=== PATIENT | male | born 1960 | race Caucasian/White ===

== ENCOUNTER 2016-07-10 11:24 | Inpatient (IN) | payer MEDICARE, OTHER ==
[~2016-07-10] VITALS: Ht 182.9 cm; Wt 93.2 kg
[2016-07-10] MEDS ORDERED: MAGNESIUM HYDROXIDE 30ML CUP PO PRN (12:30)
[2016-07-10] MEDS ORDERED: ACETAMINOPHEN 325 MG TAB PO PRN (12:30)
[2016-07-10] MEDS ORDERED: DOCUSATE SODIUM 100 MG CAP PO PRN (12:30)
[2016-07-10] MEDS ORDERED: NACL 0.9% 3 ML SYG IV SCH (12:30)
[2016-07-10] MEDS ORDERED: GABAPENTIN 400 MG CAP PO SCH (13:00)
[2016-07-10] MEDS ORDERED: CARBIDOPA/LEVODOPA (25/100) TAB PO SCH (13:00)
[2016-07-10 13:32] VITALS: BP 119/82; RESP 18
[2016-07-10] MEDS ORDERED: METHADONE 10 MG TAB PO SCH (14:00)
[2016-07-10 14:10] LABS: AADO2 Arterial 2.6 mmHg (7.0-24.0); Allen Test ACCEPTAB; Arterial COHb 0.3 % (0.0-3.0); Arterial Fraction of Oxyhgb 96.8 % (93.0-99.0); Arterial MetHb 0.2 % (0.0-1.5); Arterial Total Hemglobin 12.3 g/dl (12.0-18.0); MODE ROOM AIR
[2016-07-10 14:14] LABS: ADD SCAN DIFF NO
[2016-07-10 14:16] LABS: BASOPHILS % 0.7 % (0.0-2.0); EOSINOPHILS # 0.1 10^3/ul (0.0-0.5); EOSINOPHILS % 2.2 % (0.0-7.0); HEMATOCRIT 35.2 % (42.0-52.0); HEMOGLOBIN 11.5 g/dl (14.0-18.0); LYMPHOCYTES # 1.9 10^3/ul (0.8-2.9); LYMPHOCYTES % 34.8 % (15.0-51.0); MEAN CORPUSCULAR HEMOGLOBIN 28.8 pg (29.0-33.0); MEAN CORPUSCULAR HGB CONC 32.7 g/dl (32.0-37.0); MEAN CORPUSCULAR VOLUME 88.2 fl (82.0-101.0); MEAN PLATELET VOLUME 9.5 fl (7.4-10.4); MONOCYTE # 0.5 10^3/ul (0.3-0.9); MONOCYTES % 8.9 % (0.0-11.0); NEUTROPHIL # 2.9 10^3/ul (1.6-7.5); NEUTROPHILS % 52.7 % (39.0-77.0); PLATELET COUNT 212 10^3/UL (140-415); RED BLOOD COUNT 3.99 10^6/ul (4.70-6.10); WHITE BLOOD COUNT 5.5 10^3/ul (4.8-10.8)
[2016-07-10 14:39] LABS: ALBUMIN 3.8 g/dl (3.3-4.9); ALBUMIN/GLOBULIN RATIO 1.65; BILIRUBIN,INDIRECT 0.1 mg/dl (0-1.1); BILIRUBIN,TOTAL 0.1 mg/dl (0.2-1.3); CALCIUM 9.2 mg/dl (8.4-10.2); CREATININE 1.9 mg/dl (0.61-1.24); TOTAL PROTEIN 6.1 g/dl (6.1-8.1)
[2016-07-10 14:40] LABS: POTASSIUM 5.2 mmol/L (3.5-5.1)
[2016-07-10 14:54] LABS: T3 UPTAKE 35.3 % (23.5-40.5)
[2016-07-10 15:08] LABS: THYROID STIMULATING HORMONE 0.624 MIU/L (0.465-4.680)
[2016-07-10 15:34] VITALS: Ht 182.9 cm; Wt 93.2 kg
[2016-07-10] MEDS ORDERED: GLUCAGON 1 MG INJ IM PRN (16:00)
[2016-07-10] MEDS ORDERED: DEXTROSE 50% 50 ML SYRINGE IV PRN ×2 (16:00)
[2016-07-10] MEDS ORDERED: GLUCOSE GEL 15 GRAM TUBE BUCCAL PRN (16:00)
[2016-07-10] MEDS ORDERED: GLUCOSE GEL 15 GRAM TUBE PO PRN ×2 (16:00)
[2016-07-10] MEDS: METHADONE 10 MG TAB PO SCH ×2 (16:07→22:40)
[2016-07-10] MEDS: GABAPENTIN 400 MG CAP PO SCH ×2 (16:07→20:45)
[2016-07-10] MEDS: metFORMIN 500 MG TAB PO SCH (17:25)
[2016-07-10] MEDS: CARBIDOPA/LEVODOPA (25/100) TAB PO SCH ×2 (18:07→20:45)
[2016-07-10] MEDS: SOD CHLORIDE 0.9% 1,000 ML IV SCH ×2 (18:08→22:44)
[2016-07-10] MEDS: INSULIN ASPART [NOVOLOG] 3 ML PEN SC SCH ×2 (18:16→21:00)
[2016-07-10] MEDS ORDERED: SOD CHLORIDE 0.9% 500 ML IV ONE (18:30)
[2016-07-10 18:37] LABS: ADD UMIC NO; URINE BILIRUBIN (Dip) NEGATIVE (NEGATIVE); URINE BLOOD (Dip) NEGATIVE (NEGATIVE); URINE COLOR LT. YELLOW (YELLOW); URINE KETONES (Dip) NEGATIVE (NEGATIVE); URINE LEUKOCYTE ESTERASE (Dip) NEGATIVE (NEGATIVE); URINE NITRITE (Dip) NEGATIVE (NEGATIVE); URINE TOTAL PROTEIN (Dip) NEGATIVE (NEGATIVE); URINE UROBILINOGEN (Dip) 0.2 E.U./dL (0.1-1.0)
[2016-07-10 19:27] VITALS: BP 123/79; RESP 20
[2016-07-10] MEDS: ACCU-CHEK XX SCH (19:50)
[2016-07-10] MEDS: FAMOTIDINE 20 MG TAB PO SCH (20:45)
[2016-07-10] MEDS: TIZANIDINE 4 MG TAB PO SCH (20:45)
[2016-07-10] MEDS: INSULIN GLARGINE [LANtus] 3 ML PEN SC SCH (20:50)
[2016-07-10] MEDS: HEPARIN 5,000 UNIT/0.5 ML VIAL SC SCH (21:00)
--- NOTE | 2016-07-10 22:35 | HP ---
DATE OF ADMISSION: 07/10/2016 HISTORY OF PRESENT ILLNESS: This is the first recent [facility] admission for thi s 55-year-old right-handed, single male. He has a history of diabetes mellitus type 1 -- SPENCER with multiple complications. In addition to this, he has Parkinson disease and has recently tinsley d a second deep brain stimulator implanted. Postoperatively, he has had some failure to thrive with steadily worsening ability to care for himself. He has developed a cough and has a lesion on his e ar. Because of this and because of not being able to care for himself, he is now brought into the ospital for treatment for possible bronchitis infection in the setting of multiple other medical pro blems. PAST MEDICAL HISTORY: 1. Diabetes mellitus type 1 -- SPENCER. 2. Parkinson disease. 3. Chronic kidney disease stage III. 4. Lumbar disk disease with failed low back syndrome. 5. Chronic pain syndrome. 6. Hypertension. 7. Hyperlipidemia. 8. Major depressive disorder. 9. History of obstructive sleep apnea. 10. Diabetic peripheral neuropathy. 11. Remote history of gastric ulcer. 12. Reflex sympathetic dystrophy, also known as complex regional pain syndrome. 13. Remote history of hepatitis A. 14. Status post subtotal gastrectomy with Madison-en-Y construction. 15. Status post repair of fourth cranial nerve injury in 1993. 16. Status post T and A. 17. Status post eye surgery x3. 18. Status post lumbar laminectomy. 19. Status post L4-5 facet rhizotomy. 20. Status post radial keratotomy. 21. Status post left shoulder arthroscopy. 22. Status post deep brain stimulator. ALLERGIES: HE IS INTOLERANT OF TOPIRAMATE AND HAD SOME ISSUES WITH SINEMET, BUT HE IS TOLERATING TH AT NOW. MEDICATIONS: 1. Sinemet 25/100 q.i.d. 2. Docusate p.r.n. 3. Gabapentin 600 q.i.d. 4. Lisinopril 20 mg a day. 5. Metformin 500 b.i.d. 6. Methadone 20 mg once a day. 7. Tizanidine 4 mg at bedtime. HABITS: He is a nonsmoker. No alcohol. No usage of recreational drugs. SOCIAL HISTORY: He was born in [place] and raised here. Has a high school education without hi litary experience. He is single. 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 He is now 100% medically disabled and has been for some time. FAMILY HISTORY: Negative for coronary artery disease. Positive for diabetes. Negative for hyperte nsion. Positive for stroke. Negative for asthma. Positive for migraine. Negative for glaucoma. Negative for colon cancer. Positive for prostate cancer. REVIEW OF SYSTEMS: HEAD AND EYES: Negative. EARS, NOSE, THROAT: Notable for some problems with balance and otherwise negative. RESPIRATORY: Negative. CARDIAC: Negative. GASTROINTESTINAL: Notable for an unplanned weight loss, otherwise negative. HEMATOLOGIC: Negative. UROLOGIC: Negative. MUSCULOSKELETAL: Notable for chronic back pain. NEUROLOGIC: Notable improvement in his tremor after the deep brain stimulators, but he has had a lo ss of voice. PHYSICAL EXAMINATION: GENERAL: At the time of physical exam, he is a charming male in no jessica distress who has lost a significant amount of weight. VITAL SIGNS: He has a temperature of 98.3, pulse 76, respirations 18, blood pressure is 119/82. HEENT: NC/AT. He has an abrasion on the right pinna, otherwise negative. Tympanic membranes witho ut note. Oropharynx demonstrates no lesions. NECK: Supple. There is a midline trachea. There is no thyromegaly. Pulses are 2+ without bruits. RESPIRATORY: Demonstrates clear to auscultation and percussion. CARDIAC: Demonstrates no JVD. Regular rate and rhythm without rubs, murmurs, or gallops. ABDOMEN: Soft, nontender, active bowel sounds. No hepatosplenomegaly. No CVA tenderness. No earline ias. No bruits. EXTREMITIES: Demonstrate no clubbing, cyanosis, or edema. NEUROLOGIC: Nonfocal. ASSESSMENT AND PLAN: 1. Chronic kidney disease, stage II. His renal function actually slightly worse, suggestive of him not taking enough orally in. We will rehydrate him with a fluid bolus and some IV fluids and monit or his function. 2. Diabetes mellitus type 2. His sugars drifted, which may indicate occult infection. 3. Ear lesion. This may be a mild infection. Will take a look at this problem. 4. Loss of weight. We will investigate him thoroughly, although he has had recent issues evaluatio ns for the deep brain stimulators, which were placed at [facility]. 5. Ultimately, I suspect he is going to need to have some physical therapy rehabilitation and may n eed placement in an extended care facility for approximately 2 to 3 months to rebuild his physical s tamina. Dictated By: ARSEN HUITRON MD, JR/LORIE Conf#: [id number] DID#: [id number]
[2016-07-10] MEDS: CEFOTAXIME IVPB SCH (22:39)
[2016-07-10] MEDS: SOD CHLORIDE 0.9% IVPB SCH (22:39)
[2016-07-11] MEDS: ACCU-CHEK XX SCH ×4 (02:00→19:50)
[2016-07-11] MEDS: SOD CHLORIDE 0.9% IVPB SCH ×3 (06:09→22:33)
[2016-07-11] MEDS: CEFOTAXIME IVPB SCH ×3 (06:09→22:33)
[2016-07-11] MEDS: METHADONE 10 MG TAB PO SCH ×3 (06:11→22:27)
[2016-07-11 07:00] LABS: ADD SCAN DIFF NO
[2016-07-11 07:07] LABS: BASOPHILS % 0.9 % (0.0-2.0); EOSINOPHILS # 0.2 10^3/ul (0.0-0.5); EOSINOPHILS % 3.9 % (0.0-7.0); HEMATOCRIT 31.9 % (42.0-52.0); HEMOGLOBIN 10.2 g/dl (14.0-18.0); LYMPHOCYTES % 42.5 % (15.0-51.0); MEAN CORPUSCULAR HEMOGLOBIN 28.3 pg (29.0-33.0); MEAN CORPUSCULAR VOLUME 88.4 fl (82.0-101.0); MEAN PLATELET VOLUME 9.6 fl (7.4-10.4); MONOCYTE # 0.5 10^3/ul (0.3-0.9); MONOCYTES % 9.8 % (0.0-11.0); NEUTROPHILS % 42.5 % (39.0-77.0); PLATELET COUNT 179 10^3/UL (140-415); RED BLOOD COUNT 3.61 10^6/ul (4.70-6.10); WHITE BLOOD COUNT 4.6 10^3/ul (4.8-10.8)
[2016-07-11 07:30] VITALS: BP 124/75; RESP 16
[2016-07-11 07:45] LABS: ALBUMIN 3.2 g/dl (3.3-4.9); ALBUMIN/GLOBULIN RATIO 1.39; BILIRUBIN,INDIRECT 0.1 mg/dl (0-1.1); BILIRUBIN,TOTAL 0.1 mg/dl (0.2-1.3); CALCIUM 8.6 mg/dl (8.4-10.2); CREATININE 1.83 mg/dl (0.61-1.24); POTASSIUM 4.7 mmol/L (3.5-5.1); TOTAL PROTEIN 5.5 g/dl (6.1-8.1)
[2016-07-11] MEDS: INSULIN ASPART [NOVOLOG] 3 ML PEN SC SCH ×4 (08:10→21:00)
[2016-07-11] MEDS: CARBIDOPA/LEVODOPA (25/100) TAB PO SCH ×4 (09:50→20:28)
[2016-07-11] MEDS: GABAPENTIN 400 MG CAP PO SCH ×4 (09:50→20:27)
[2016-07-11] MEDS: FAMOTIDINE 20 MG TAB PO SCH (09:50)
[2016-07-11] MEDS: LISINOPRIL 20 MG TAB PO SCH (09:51)
[2016-07-11] MEDS: SOD CHLORIDE 0.9% 1,000 ML IV SCH (09:52)
[2016-07-11] MEDS: HEPARIN 5,000 UNIT/0.5 ML VIAL SC SCH ×2 (09:58→20:34)
[2016-07-11] MEDS: metFORMIN 500 MG TAB PO SCH (17:22)
--- NOTE | 2016-07-11 17:35 | PN ---
Date/Time of Note Date/Time of Note DATE: 07/11/16 TIME: 17:31 Assessment/Plan VTE Prophylaxis VTE Prophylaxis Intervention: heparin Lines/Catheters IV C[facility]ter Type (from [facility]): Peripheral IV Urinary Cath still in place: No Assessment/Plan Problems: (1) Diabetes mellitus type 2 in obese Status: Chronic Comment: His blood sugar control has not been bad. He is on a much tighter regimen in the hospital with a controlled setting (2) Dysthymia (or depressive neurosis) Status: Chronic Comment: He is on appropriate medical therapy for this. (3) Hypertension, essential Status: Chronic Comment: Well-controlled (4) Parkinson's disease (tremor, stiffness, slow motion, unstable posture) Status: Chronic Comment: This is a major issue for this gentleman's life. He is status post deep brain stimulator. After this he has had some change in his behavior with weight loss and some problems swallowing. Is undergoing formalized speech therapy evaluation undoubtedly is going to need physical therapy combined with speech therapy and occupational therapy. 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 On review he is feeling somewhat overwhelmed from all that has changed in the last year. Constitutional: no complaints Respiratory: no complaints Cardiovascular: no complaints Gastrointestinal: no complaints Exam/Review of Systems Vital Signs Vitals Vital Signs Date Time Temp Pulse Resp B/P Pulse Ox O2 Delivery O2 Flow Rate FiO2 07/11/16 07:30 97.7 61 16 124/75 98 Intake and Output 07/10/16 07/10/16 07/11/16 15:00 23:00 07:00 Intake Total 1050 ml 1130 ml Output Total 300 ml 1000 ml Balance 750 ml 130 ml Exam Constitutional: alert, oriented Respiratory: clear to auscultation, normal air movement Cardiovascular: nl pulses, regular rate and rhythm Gastrointestinal: nl liver, spleen, soft Results Result Diagram: 07/11/16 0615 07/11/16 0615 Results 24 hrs Laboratory Tests Test 07/10/16 18:15 5/3/17 20:34 07/11/16 06:15 07/11/16 08:05 Urine Color LT. YELLOW Urine Clarity CLEAR Urine pH 6.0 Urine Specific [place] 1.020 Urine Ketones NEGATIVE Urine Nitrite NEGATIVE Urine Bilirubin NEGATIVE Urine Urobilinogen 0.2 E.U./dL Urine Leukocyte Esterase NEGATIVE Urine Hemoglobin NEGATIVE Urine Glucose 0.5% H Urine Total Protein NEGATIVE Bedside Glucose 136 140 White Blood Count 4.6 L Red Blood Count 3.61 L Hemoglobin 10.2 L Hematocrit 31.9 L Mean Corpuscular Volume 88.4 Mean Corpuscular Hemoglobin 28.3 L Mean Corpuscular Hemoglobin Concent 32.0 Red Cell Distribution Width 13.0 Platelet Count 179 Mean Platelet Volume 9.6 Neutrophils % 42.5 Lymphocytes % 42.5 Monocytes % 9.8 Eosinophils % 3.9 Basophils % 0.9 Nucleated Red Blood Cells % 0.0 Neutrophils # 2.0 Lymphocytes # 2.0 Monocytes # 0.5 Eosinophils # 0.2 Basophils # 0.0 Nucleated Red Blood Cells # 0.0 Sodium Level 136 Potassium Level 4.7 Chloride Level 108 Carbon Dioxide Level 24 Anion Gap 9 Blood Urea Nitrogen 27 H Creatinine 1.83 H Glucose Level 129 # Calcium Level 8.6 Total Bilirubin 0.1 L Direct Bilirubin 0.00 Indirect Bilirubin 0.1 Aspartate Amino Transf (AST/SGOT) 21 Alanine Aminotransferase (ALT/SGPT) 20 Alkaline Phosphatase 80 Total Protein 5.5 L Albumin 3.2 L Globulin 2.30 Albumin/Globulin Ratio 1.39 Test 07/11/16 10:03 07/11/16 11:52 07/11/16 14:13 07/11/16 17:00 Bedside Glucose 196 189 151 98 Medications Medications Current Medications Acetaminophen (Tylenol Tab) 650 mg Q6H PRN PO PAIN LEVEL 1-3 OR FEVER; Start at 12:30 Docusate Sodium (Colace) 100 mg Q12H PRN PO CONSTIPATION; Start 07/10/16 at 12: 30 Magnesium Hydroxide (Milk Of Mag) 30 ml DAILY PRN PO CONSTIPATION Last administered on 07/10/16 20:44; Admin Dose 30 ML; Start 07/10/16 at 12:30 Famotidine (Pepcid) 20 mg DAILY PO Last administered on 07/11/16 09:50; Admin Dose 20 MG; Start 07/10/16 at 21:00 Heparin Sodium (Porcine) (Heparin (5000 Units/0.5 ml)) 5,000 unit Q12 SC Last administered on 07/11/16 09:58; Admin Dose 5,000 UNIT; Start 07/10/16 at 21:00 Lisinopril (Zestril) 20 mg DAILY PO Last administered on 07/11/16 09:51; Admin Dose 20 MG; Start 07/11/16 at 09:00 Tizanidine HCl (Zanaflex) 4 mg QHS PO Last administered on 07/10/16 20:45; Admin Dose 4 MG; Start 07/10/16 at 21:00 Methadone HCl (Methadone) 10 mg Q8 PO Last administered on 07/11/16 13:10; Admin Dose 10 MG; Start 07/10/16 at 16:00 Gabapentin (Neurontin) 800 mg QID PO Last administered on 07/11/16 17:23; Admin Dose 800 MG; Start 07/10/16 at 17:00 Carbidopa/Levodopa (Sinemet (25/ 100)) 1 tab QID PO Last administered on 17:23; Admin Dose 1 TAB; Start 07/10/16 at 17:00 Miscellaneous Information 1 ea NOTE XX ; Start 07/10/16 at 16:00 Glucose (Glutose) 15 gm Q15M PRN PO DECREASED GLUCOSE; Start 07/10/16 at 16:00 Glucose (Glutose) 22.5 gm Q15M PRN PO DECREASED GLUCOSE; Start 07/10/16 at 16:00 Dextrose (D50w Syringe) 25 ml Q15M PRN IV DECREASED GLUCOSE; Start 07/10/16 at 16:00 Dextrose (D50w Syringe) 50 ml Q15M PRN IV DECREASED GLUCOSE; Start 07/10/16 at 16:00 Glucagon (Glucagen) 1 mg Q15M PRN IM DECREASED GLUCOSE; Start 07/10/16 at 16:00 Glucose (Glutose) 15 gm Q15M PRN BUCCAL DECREASED GLUCOSE; Start 07/10/16 at 16: 00 Insulin Glargine (Lantus) 6 unit DAILY@20 SC Last administered on 07/10/16 20: 50; Admin Dose 6 UNIT; Start 07/10/16 at 20:00 Diagnostic Test (Pha) 1 ea 1 ea 02 XX ; Start 07/11/16 at 02:00 Sodium Chloride 1,000 ml @ 100 mls/hr Q10H IV Last administered on 07/11/16 09 :52; Admin Dose 100 MLS/HR; Start 07/10/16 at 18:30 Cefotaxime Sodium/ Sodium Chloride (Claforan/NS) 50 ml @ 100 mls/hr Q8 IVPB Last administered on 07/11/16 13:10; Admin Dose 100 MLS/HR; Start 07/10/16 at 22: 00 ARSEN HUITRON MD July 11, 2016 17:35
[2016-07-11] MEDS ORDERED: CYANOCOBALAMIN 1000 MCG INJ IM ONE (18:00)
[2016-07-11] MEDS: THIAMINE 100 MG TAB PO SCH (18:46)
[2016-07-11] MEDS: MULTIVIT/CA CARB/B CMPLX/FA TAB PO SCH (18:46)
[2016-07-11 19:59] VITALS: BP 159/71; RESP 19
[2016-07-11] MEDS: INSULIN GLARGINE [LANtus] 3 ML PEN SC SCH (20:16)
[2016-07-11] MEDS: TIZANIDINE 4 MG TAB PO SCH (20:28)
[2016-07-12] MEDS: ACCU-CHEK XX SCH ×4 (02:00→20:05)
[2016-07-12] MEDS: SOD CHLORIDE 0.9% IVPB SCH ×3 (05:37→21:41)
[2016-07-12] MEDS: CEFOTAXIME IVPB SCH ×3 (05:37→21:41)
[2016-07-12] MEDS: METHADONE 10 MG TAB PO SCH ×3 (05:38→21:40)
[2016-07-12] MEDS: SOD CHLORIDE 0.9% 1,000 ML IV SCH (05:40)
[2016-07-12 07:38] VITALS: BP 121/72; RESP 18
[2016-07-12] MEDS: GABAPENTIN 400 MG CAP PO SCH ×4 (08:36→21:00)
--- NOTE | 2016-07-12 08:36 | PN ---
Date/Time of Note Date/Time of Note DATE: 07/12/16 TIME: 08:31 Assessment/Plan VTE Prophylaxis VTE Prophylaxis Intervention: heparin Lines/Catheters [facility] Peripheral IV Urinary Cath still in place: No Assessment/Plan Problems: (1) Status post bariatric surgery Status: Chronic Comment: He is on full vitamin replacement due to the Madison-en-Y bypass he had. This is stable (2) Status post deep brain stimulator placement Status: Acute Comment: This is been quite helpful for his Parkinson's disease (3) Chronic kidney disease, stage III (moderate) Status: Chronic Comment: He is at a stable steady place with his serum creatinine matching where he was 3 years ago (4) BPH (benign prostatic hypertrophy) with urinary retention Status: Chronic Comment: This may have an effect on his renal function. I am going to place him on tamsulosin. (5) Dysphagia, neurologic Status: Acute Comment: Awaiting formal swallowing study. (6) Parkinson's disease (tremor, stiffness, slow motion, unstable posture) Status: Chronic Comment: He is doing relatively well. 1 of the medicines for Parkinson's disease; bromocriptine; can also be useful in type 2 diabetes. I am going to use this is extremely low dose and watch for side effects (7) Hypertension, essential Status: Chronic Comment: Adequate control (8) Diabetes mellitus type 2 in obese Status: Chronic Comment: Very good control. With the bromocriptine we should be able to back off on some of the insulin. (9) Dysthymia (or depressive neurosis) Status: Chronic Comment: Stable Subjective 24 Hr Interval Summary Free Text/Dictation Patient is significantly improved as compared to the time of admission. Constitutional: no complaints (No fevers chills or sweats) Respiratory: no complaints Cardiovascular: no complaints Gastrointestinal: no complaints Genitourinary: no complaints Exam/Review of Systems Vital Signs Vitals Vital Signs Date Time Temp Pulse Resp B/P Pulse Ox O2 Delivery O2 Flow Rate FiO2 07/12/16 07:38 98.5 65 18 121/72 97 Intake and Output 07/11/16 07/11/16 07/12/16 15:00 23:00 07:00 Intake Total 400 ml 1520 ml 880 ml Output Total 1600 ml 1800 ml Balance 400 ml -80 ml -920 ml Exam Constitutional: alert, oriented Neck: non-tender, supple Respiratory: clear to auscultation, normal air movement Cardiovascular: nl pulses, regular rate and rhythm Results Result Diagram: 07/11/16 0615 07/11/16 0615 Results 24 hrs Laboratory Tests Test 07/11/16 10:03 07/11/16 11:52 07/11/16 14:13 07/11/16 17:00 Bedside Glucose 196 189 151 98 Test 07/11/16 20:11 07/11/16 22:29 07/12/16 08:11 Bedside Glucose 170 175 143 Medications Medications Current Medications Acetaminophen (Tylenol Tab) 650 mg Q6H PRN PO PAIN LEVEL 1-3 OR FEVER; Start at 12:30 Docusate Sodium (Colace) 100 mg Q12H PRN PO CONSTIPATION; Start 07/10/16 at 12: 30 Magnesium Hydroxide (Milk Of Mag) 30 ml DAILY PRN PO CONSTIPATION Last administered on 07/10/16 20:44; Admin Dose 30 ML; Start 07/10/16 at 12:30 Famotidine (Pepcid) 20 mg DAILY PO Last administered on 07/11/16 09:50; Admin Dose 20 MG; Start 07/10/16 at 21:00 Heparin Sodium (Porcine) (Heparin (5000 Units/0.5 ml)) 5,000 unit Q12 SC Last administered on 07/11/16 20:34; Admin Dose 5,000 UNIT; Start 07/10/16 at 21:00 Lisinopril (Zestril) 20 mg DAILY PO Last administered on 07/11/16 09:51; Admin Dose 20 MG; Start 07/11/16 at 09:00 Tizanidine HCl (Zanaflex) 4 mg QHS PO Last administered on 07/11/16 20:28; Admin Dose 4 MG; Start 07/10/16 at 21:00 Methadone HCl (Methadone) 10 mg Q8 PO Last administered on 07/12/16 05:38; Admin Dose 10 MG; Start 07/10/16 at 16:00 Gabapentin (Neurontin) 800 mg QID PO Last administered on 07/11/16 20:27; Admin Dose 800 MG; Start 07/10/16 at 17:00 Carbidopa/Levodopa (Sinemet (25/ 100)) 1 tab QID PO Last administered on 20:28; Admin Dose 1 TAB; Start 07/10/16 at 17:00 Miscellaneous Information 1 ea NOTE XX ; Start 07/10/16 at 16:00 Glucose (Glutose) 15 gm Q15M PRN PO DECREASED GLUCOSE; Start 07/10/16 at 16:00 Glucose (Glutose) 22.5 gm Q15M PRN PO DECREASED GLUCOSE; Start 07/10/16 at 16:00 Dextrose (D50w Syringe) 25 ml Q15M PRN IV DECREASED GLUCOSE; Start 07/10/16 at 16:00 Dextrose (D50w Syringe) 50 ml Q15M PRN IV DECREASED GLUCOSE; Start 07/10/16 at 16:00 Glucagon (Glucagen) 1 mg Q15M PRN IM DECREASED GLUCOSE; Start 07/10/16 at 16:00 Glucose (Glutose) 15 gm Q15M PRN BUCCAL DECREASED GLUCOSE; Start 07/10/16 at 16: 00 Insulin Glargine (Lantus) 6 unit DAILY@20 SC Last administered on 07/11/16 20: 16; Admin Dose 6 UNIT; Start 07/10/16 at 20:00 Diagnostic Test (Pha) 1 ea 1 ea 02 XX ; Start 07/11/16 at 02:00 Sodium Chloride 1,000 ml @ 30 mls/hr Q24H IV Last administered on 07/12/16 05: 40; Admin Dose 30 MLS/HR; Start 07/10/16 at 18:30 Cefotaxime Sodium/ Sodium Chloride (Claforan/NS) 50 ml @ 100 mls/hr Q8 IVPB Last administered on 07/12/16 05:37; Admin Dose 100 MLS/HR; Start 07/10/16 at 22: 00; Stop 07/13/16 at 21:59 Thiamine HCl (Vitamin B1) 100 mg DAILY PO Last administered on 07/11/16 18:46; Admin Dose 100 MG; Start 07/11/16 at 18:00 Multivit/Ca Carb/ B Cmplx/FA/Prenat (Jessie-Lisa) 1 tab DAILY PO Last administered on 07/11/16 18:46; Admin Dose 1 TAB; Start 07/11/16 at 18:00 Bromocriptine Mesylate (Parlodel) 1.25 mg DAILY PO ; Start 07/12/16 at 10:00 ARSEN HUITRON MD July 12, 2016 08:36
[2016-07-12] MEDS: MULTIVIT/CA CARB/B CMPLX/FA TAB PO SCH (08:37)
[2016-07-12] MEDS: CARBIDOPA/LEVODOPA (25/100) TAB PO SCH ×4 (08:37→21:00)
[2016-07-12] MEDS: THIAMINE 100 MG TAB PO SCH (08:37)
[2016-07-12] MEDS: FAMOTIDINE 20 MG TAB PO SCH (08:37)
[2016-07-12] MEDS: LISINOPRIL 20 MG TAB PO SCH (08:37)
[2016-07-12] MEDS: HEPARIN 5,000 UNIT/0.5 ML VIAL SC SCH ×2 (08:46→21:08)
[2016-07-12] MEDS: INSULIN ASPART [NOVOLOG] 3 ML PEN SC SCH ×4 (08:46→21:00)
[2016-07-12] MEDS: BROMOCRIPTINE 2.5 MG TAB PO SCH (10:33)
--- NOTE | 2016-07-12 16:07 | RADRPT ---
PROCEDURE: Video-fluoroscopy swallowing study. CLINICAL INDICATION: Dysphagia. TECHNIQUE: Fluoroscopic guided video swallowing study was done in conjunction with the speech ther apist. The study was confined to the oral, pharyngeal, and cervical phases of the swallowing mechani sm. 3.2 minutes of fluoroscopy time was used. COMPARISON: No prior study is available for comparison. FINDINGS: There is no evidence of aspiration during the exam. IMPRESSION: 1. Normal study. No aspiration. 2. Please refer to the speech therapist's recommendations for future feedings. RPTAT: QQ .Mario Helms MD, MD Date Time Electronically viewed and signed by .Mario Helms MD, on 07/12/2016 16:07 .R/
[2016-07-12] MEDS: metFORMIN 500 MG TAB PO SCH (17:47)
[2016-07-12 20:00] VITALS: BP 125/76; RESP 20
[2016-07-12] MEDS: INSULIN GLARGINE [LANtus] 3 ML PEN SC SCH (20:08)
[2016-07-12] MEDS: TAMSULOSIN (SR) 0.4 MG CAP PO SCH (21:00)
[2016-07-12] MEDS: TIZANIDINE 4 MG TAB PO SCH (21:01)
[2016-07-13] MEDS: ACCU-CHEK XX SCH ×4 (00:38→19:50)
[2016-07-13] MEDS: SOD CHLORIDE 0.9% IVPB SCH ×2 (05:21→14:12)
[2016-07-13] MEDS: METHADONE 10 MG TAB PO SCH ×3 (05:21→21:03)
[2016-07-13] MEDS: CEFOTAXIME IVPB SCH ×2 (05:21→14:12)
[2016-07-13 07:36] VITALS: BP 120/71; RESP 18
[2016-07-13] MEDS: INSULIN ASPART [NOVOLOG] 3 ML PEN SC SCH ×4 (08:15→21:00)
[2016-07-13] MEDS: FAMOTIDINE 20 MG TAB PO SCH (09:13)
[2016-07-13] MEDS: MULTIVIT/CA CARB/B CMPLX/FA TAB PO SCH (09:13)
[2016-07-13] MEDS: GABAPENTIN 400 MG CAP PO SCH ×4 (09:13→21:03)
[2016-07-13] MEDS: LISINOPRIL 20 MG TAB PO SCH (09:14)
[2016-07-13] MEDS: BROMOCRIPTINE 2.5 MG TAB PO SCH (09:14)
[2016-07-13] MEDS: CARBIDOPA/LEVODOPA (25/100) TAB PO SCH ×4 (09:14→21:03)
[2016-07-13] MEDS: THIAMINE 100 MG TAB PO SCH (09:14)
[2016-07-13] MEDS: HEPARIN 5,000 UNIT/0.5 ML VIAL SC SCH ×2 (09:17→21:09)
--- NOTE | 2016-07-13 10:30 | PN ---
Date/Time of Note Date/Time of Note DATE: 07/13/16 TIME: 10:28 Assessment/Plan VTE Prophylaxis VTE Prophylaxis Intervention: heparin Lines/Catheters IV C[facility]ter Type (from [facility] Peripheral IV Urinary Cath still in place: No Assessment/Plan Problems: (1) Diabetes mellitus type 2 in obese Status: Chronic Comment: Good control. 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 (3) Parkinson's disease (tremor, stiffness, slow motion, unstable posture) Status: Chronic Comment: Adequate control with medications and deep brain stimulators. We need the occupational therapy and physical therapy evaluations to delineate the plan for the extended care facility. Still awaiting their consults (4) Chronic kidney disease, stage III (moderate) Status: Chronic Comment: Stable (5) BPH (benign prostatic hypertrophy) with urinary retention Status: Chronic Comment: Continue treatment Subjective 24 Hr Interval Summary Free Text/Dictation Patient is doing well and passed a swallowing study in radiology. Physical therapy and Occupational Therapy are still pending Constitutional: no complaints Respiratory: no complaints Cardiovascular: no complaints Gastrointestinal: no complaints Exam/Review of Systems Vital Signs Vitals Vital Signs Date Time Temp Pulse Resp B/P Pulse Ox O2 Delivery O2 Flow Rate FiO2 07/13/16 07:36 98.0 68 18 120/71 96 Intake and Output 07/12/16 07/12/16 07/13/16 14:59 22:59 06:59 Intake Total 150 ml 1120 ml 700 ml Output Total 1600 ml 1000 ml Balance 150 ml -480 ml -300 ml Exam Constitutional: alert, oriented Respiratory: clear to auscultation, normal air movement Cardiovascular: nl pulses, regular rate and rhythm Gastrointestinal: nl liver, spleen, non-tender, soft Neurological: other (Findings of advanced Parkinson's) Results Result Diagram: 07/11/1615 07/11/1615 Results 24 hrs Laboratory Tests Test 07/12/16 10:30 07/12/16 11:55 07/12/16 14:12 07/12/16 17:18 Bedside Glucose 264 H 207 141 95 Test 07/12/16 19:57 07/12/16 21:05 07/13/16 07:53 07/13/16 10:02 Bedside Glucose 132 152 114 236 H Medications Medications Current Medications Acetaminophen (Tylenol Tab) 650 mg Q6H PRN PO PAIN LEVEL 1-3 OR FEVER; Start at 12:30 Docusate Sodium (Colace) 100 mg Q12H PRN PO CONSTIPATION; Start 07/10/16 at 12: 30 Magnesium Hydroxide (Milk Of Mag) 30 ml DAILY PRN PO CONSTIPATION Last administered on 07/10/16 20:44; Admin Dose 30 ML; Start 07/10/16 at 12:30 Famotidine (Pepcid) 20 mg DAILY PO Last administered on 07/13/16 09:13; Admin Dose 20 MG; Start 07/10/16 at 21:00 Heparin Sodium (Porcine) (Heparin (5000 Units/0.5 ml)) 5,000 unit Q12 SC Last administered on 07/13/16 09:17; Admin Dose 5,000 UNIT; Start 07/10/16 at 21:00 Lisinopril (Zestril) 20 mg DAILY PO Last administered on 07/13/16 09:14; Admin Dose 20 MG; Start 07/11/16 at 09:00 Tizanidine HCl (Zanaflex) 4 mg QHS PO Last administered on 07/12/16 21:01; Admin Dose 4 MG; Start 07/10/16 at 21:00 Methadone HCl (Methadone) 10 mg Q8 PO Last administered on 07/13/16 05:21; Admin Dose 10 MG; Start 07/10/16 at 16:00 Gabapentin (Neurontin) 800 mg QID PO Last administered on 07/13/16 09:13; Admin Dose 800 MG; Start 07/10/16 at 17:00 Carbidopa/Levodopa (Sinemet (25/ 100)) 1 tab QID PO Last administered on 09:14; Admin Dose 1 TAB; Start 07/10/16 at 17:00 Miscellaneous Information 1 ea NOTE XX ; Start 07/10/16 at 16:00 Glucose (Glutose) 15 gm Q15M PRN PO DECREASED GLUCOSE; Start 07/10/16 at 16:00 Glucose (Glutose) 22.5 gm Q15M PRN PO DECREASED GLUCOSE; Start 07/10/16 at 16:00 Dextrose (D50w Syringe) 25 ml Q15M PRN IV DECREASED GLUCOSE; Start 07/10/16 at 16:00 Dextrose (D50w Syringe) 50 ml Q15M PRN IV DECREASED GLUCOSE; Start 07/10/16 at 16:00 Glucagon (Glucagen) 1 mg Q15M PRN IM DECREASED GLUCOSE; Start 07/10/16 at 16:00 Glucose (Glutose) 15 gm Q15M PRN BUCCAL DECREASED GLUCOSE; Start 07/10/16 at 16: 00 Insulin Glargine (Lantus) 6 unit DAILY@20 SC Last administered on 07/12/16 20: 08; Admin Dose 6 UNIT; Start 07/10/16 at 20:00 Diagnostic Test (Pha) 1 ea 1 ea 02 XX ; Start 07/11/16 at 02:00 Sodium Chloride 1,000 ml @ 30 mls/hr Q24H IV Last administered on 07/12/16 05: 40; Admin Dose 30 MLS/HR; Start 07/10/16 at 18:30 Cefotaxime Sodium/ Sodium Chloride (Claforan/NS) 50 ml @ 100 mls/hr Q8 IVPB Last administered on 07/13/16 05:21; Admin Dose 100 MLS/HR; Start 07/10/16 at 22: 00; Stop 07/13/16 at 21:59 Thiamine HCl (Vitamin B1) 100 mg DAILY PO Last administered on 07/13/16 09:14; Admin Dose 100 MG; Start 07/11/16 at 18:00 Multivit/Ca Carb/ B Cmplx/FA/Prenat (Jessie-Lisa) 1 tab DAILY PO Last administered on 07/13/16 09:13; Admin Dose 1 TAB; Start 07/11/16 at 18:00 Bromocriptine Mesylate (Parlodel) 1.25 mg DAILY PO Last administered on 09:14; Admin Dose 1.25 MG; Start 07/12/16 at 10:00 Tamsulosin HCl (Flomax) 0.4 mg HS PO Last administered on 07/12/16 21:00; Admin Dose 0.4 MG; Start 07/12/16 at 21:00 ARSEN HUITRON MD July 13, 2016 10:30
[2016-07-13] MEDS: SOD CHLORIDE 0.9% 1,000 ML IV SCH ×2 (14:30→18:02)
[2016-07-13] MEDS: metFORMIN 500 MG TAB PO SCH (18:01)
[2016-07-13 20:29] VITALS: BP 134/70; RESP 19
[2016-07-13] MEDS: INSULIN GLARGINE [LANtus] 3 ML PEN SC SCH (20:52)
[2016-07-13] MEDS: TIZANIDINE 4 MG TAB PO SCH (21:03)
[2016-07-13] MEDS: TAMSULOSIN (SR) 0.4 MG CAP PO SCH (21:03)
[2016-07-14] MEDS: ACCU-CHEK XX SCH ×4 (02:00→19:50)
[2016-07-14] MEDS: METHADONE 10 MG TAB PO SCH ×3 (05:59→21:58)
[2016-07-14 08:11] VITALS: BP 111/62; RESP 20
[2016-07-14] MEDS: INSULIN ASPART [NOVOLOG] 3 ML PEN SC SCH ×4 (08:15→21:00)
--- NOTE | 2016-07-14 09:25 | PN ---
Date/Time of Note Date/Time of Note DATE: 07/14/16 TIME: 09:23 Assessment/Plan VTE Prophylaxis VTE Prophylaxis Intervention: heparin Lines/Catheters IV C[facility]ter Type (from [facility] Peripheral IV Urinary Cath still in place: No Assessment/Plan Problems: (1) Diabetes mellitus type 2 in obese Status: Chronic Comment: Adequate control on the current regimen. Continue same (2) Dysthymia (or depressive neurosis) Status: Chronic Comment: He is on medications and is doing relatively well with this. I believe part of the reason his mood his mood is better as he is moving forward (3) Hypertension, essential Status: Chronic Comment: Well-controlled (4) Parkinson's disease (tremor, stiffness, slow motion, unstable posture) Status: Chronic Comment: He is stable with his deep brain stimulator in the medications. Physical therapy is come in today to see him. Based on their evaluation we will attempt placement. (5) Chronic kidney disease, stage III (moderate) Status: Chronic Comment: Stable and unchanged (6) BPH (benign prostatic hypertrophy) with urinary retention Status: Chronic Comment: Noted and stable Subjective 24 Hr Interval Summary Free Text/Dictation Patient is now being evaluated by physical therapy; Lindsey; no specific complaints although he would like to go to rehab facility that specializes in Parkinson's. Constitutional: no complaints Eyes: no complaints Respiratory: no complaints Cardiovascular: no complaints Gastrointestinal: no complaints Exam/Review of Systems Vital Signs Vitals Vital Signs Date Time Temp Pulse Resp B/P Pulse Ox O2 Delivery O2 Flow Rate FiO2 07/14/16 08:11 97.7 73 20 111/62 99 Intake and Output 07/13/16 07/13/16 07/14/16 15:00 23:00 07:00 Intake Total 50 ml 1160 ml 660 ml Output Total 2800 ml 400 ml Balance 50 ml -1640 ml 260 ml Exam Constitutional: alert, oriented Respiratory: clear to auscultation, normal air movement Cardiovascular: nl pulses, regular rate and rhythm Results Result Diagram: 07/11/16 0615 07/11/16 0615 Results 24 hrs Laboratory Tests Test 07/13/16 10:02 07/13/16 11:53 07/13/16 14:14 07/13/16 17:48 Bedside Glucose 236 H 182 228 H 149 Test 07/13/16 20:48 07/13/16 22:16 07/14/16 08:02 Bedside Glucose 212 167 110 Medications Medications Current Medications Acetaminophen (Tylenol Tab) 650 mg Q6H PRN PO PAIN LEVEL 1-3 OR FEVER; Start at 12:30 Docusate Sodium (Colace) 100 mg Q12H PRN PO CONSTIPATION; Start 07/10/16 at 12: 30 Magnesium Hydroxide (Milk Of Mag) 30 ml DAILY PRN PO CONSTIPATION Last administered on 07/10/16 20:44; Admin Dose 30 ML; Start 07/10/16 at 12:30 Famotidine (Pepcid) 20 mg DAILY PO Last administered on 07/13/16 09:13; Admin Dose 20 MG; Start 07/10/16 at 21:00 Heparin Sodium (Porcine) (Heparin (5000 Units/0.5 ml)) 5,000 unit Q12 SC Last administered on 07/13/16 21:09; Admin Dose 5,000 UNIT; Start 07/10/16 at 21:00 Lisinopril (Zestril) 20 mg DAILY PO Last administered on 07/13/16 09:14; Admin Dose 20 MG; Start 07/11/16 at 09:00 Tizanidine HCl (Zanaflex) 4 mg QHS PO Last administered on 07/13/16 21:03; Admin Dose 4 MG; Start 07/10/16 at 21:00 Methadone HCl (Methadone) 10 mg Q8 PO Last administered on 07/14/16 05:59; Admin Dose 10 MG; Start 07/10/16 at 16:00 Gabapentin (Neurontin) 800 mg QID PO Last administered on 07/13/16 21:03; Admin Dose 800 MG; Start 07/10/16 at 17:00 Carbidopa/Levodopa (Sinemet (25/ 100)) 1 tab QID PO Last administered on 21:03; Admin Dose 1 TAB; Start 07/10/16 at 17:00 Miscellaneous Information 1 ea NOTE XX ; Start 07/10/16 at 16:00 Glucose (Glutose) 15 gm Q15M PRN PO DECREASED GLUCOSE; Start 07/10/16 at 16:00 Glucose (Glutose) 22.5 gm Q15M PRN PO DECREASED GLUCOSE; Start 07/10/16 at 16:00 Dextrose (D50w Syringe) 25 ml Q15M PRN IV DECREASED GLUCOSE; Start 07/10/16 at 16:00 Dextrose (D50w Syringe) 50 ml Q15M PRN IV DECREASED GLUCOSE; Start 07/10/16 at 16:00 Glucagon (Glucagen) 1 mg Q15M PRN IM DECREASED GLUCOSE; Start 07/10/16 at 16:00 Glucose (Glutose) 15 gm Q15M PRN BUCCAL DECREASED GLUCOSE; Start 07/10/16 at 16: 00 Insulin Glargine (Lantus) 6 unit DAILY@20 SC Last administered on 07/13/16 20: 52; Admin Dose 6 UNIT; Start 07/10/16 at 20:00 Diagnostic Test (Pha) 1 ea 1 ea 02 XX ; Start 07/11/16 at 02:00 Sodium Chloride (NS) 1,000 ml @ 30 mls/hr Q24H IV Last administered on 18:02; Admin Dose 30 MLS/HR; Start 07/10/16 at 18:30 Thiamine HCl (Vitamin B1) 100 mg DAILY PO Last administered on 07/13/16 09:14; Admin Dose 100 MG; Start 07/11/16 at 18:00 Multivit/Ca Carb/ B Cmplx/FA/Prenat (Jessie-Lisa) 1 tab DAILY PO Last administered on 07/13/16 09:13; Admin Dose 1 TAB; Start 07/11/16 at 18:00 Bromocriptine Mesylate (Parlodel) 1.25 mg DAILY PO Last administered on 09:14; Admin Dose 1.25 MG; Start 07/12/16 at 10:00 Tamsulosin HCl (Flomax) 0.4 mg HS PO Last administered on 07/13/16 21:03; Admin Dose 0.4 MG; Start 07/12/16 at 21:00 ARSEN HUITRON MD July 14, 2016 09:25
[2016-07-14] MEDS: CARBIDOPA/LEVODOPA (25/100) TAB PO SCH ×4 (10:04→21:58)
[2016-07-14] MEDS: GABAPENTIN 400 MG CAP PO SCH ×4 (10:04→21:57)
[2016-07-14] MEDS: THIAMINE 100 MG TAB PO SCH (10:04)
[2016-07-14] MEDS: FAMOTIDINE 20 MG TAB PO SCH (10:04)
[2016-07-14] MEDS: MULTIVIT/CA CARB/B CMPLX/FA TAB PO SCH (10:04)
[2016-07-14] MEDS: LISINOPRIL 20 MG TAB PO SCH (10:05)
[2016-07-14] MEDS: HEPARIN 5,000 UNIT/0.5 ML VIAL SC SCH ×2 (10:07→22:03)
[2016-07-14] MEDS: SOD CHLORIDE 0.9% 1,000 ML IV SCH (14:30)
[2016-07-14] MEDS: metFORMIN 500 MG TAB PO SCH (17:36)
[2016-07-14 19:18] VITALS: BP 140/82; RESP 16
[2016-07-14] MEDS: INSULIN GLARGINE [LANtus] 3 ML PEN SC SCH (20:10)
[2016-07-14] MEDS: TAMSULOSIN (SR) 0.4 MG CAP PO SCH (21:57)
[2016-07-14] MEDS: TIZANIDINE 4 MG TAB PO SCH (21:57)
[2016-07-15] MEDS: ACCU-CHEK XX SCH ×3 (02:00→14:35)
[2016-07-15] MEDS: SOD CHLORIDE 0.9% 1,000 ML IV SCH ×2 (02:32→14:30)
[2016-07-15] MEDS: METHADONE 10 MG TAB PO SCH ×2 (05:55→14:44)
[2016-07-15 07:40] VITALS: BP 132/80; RESP 18
[2016-07-15] MEDS: INSULIN ASPART [NOVOLOG] 3 ML PEN SC SCH ×3 (08:15→17:22)
[2016-07-15] MEDS ORDERED: BROMOCRIPTINE 2.5 MG TAB PO SCH (09:00)
[2016-07-15] MEDS: MULTIVIT/CA CARB/B CMPLX/FA TAB PO SCH (09:34)
[2016-07-15] MEDS: FAMOTIDINE 20 MG TAB PO SCH (09:36)
[2016-07-15] MEDS: GABAPENTIN 400 MG CAP PO SCH ×3 (09:36→17:22)
[2016-07-15] MEDS: LISINOPRIL 20 MG TAB PO SCH (09:36)
[2016-07-15] MEDS: THIAMINE 100 MG TAB PO SCH (09:36)
[2016-07-15] MEDS: CARBIDOPA/LEVODOPA (25/100) TAB PO SCH ×3 (09:36→17:22)
[2016-07-15] MEDS: HEPARIN 5,000 UNIT/0.5 ML VIAL SC SCH (09:37)
[2016-07-15 17:02] VITALS: BP 146/83; PULSE 67; RESP 19
[2016-07-15] MEDS: metFORMIN 500 MG TAB PO SCH (17:22)
--- NOTE | 2016-07-15 17:38 | PDOCDIS ---
Discharge Instructions DIAGNOSIS Discharge Diagnosis: Parkinson's disease; DM 2; chronic kidney disease stage III; BPH; hypertens CONDITION Patient Condition: Fair HOME CARE INSTRUCTIONS: Special Diet: Mechanical soft ACTIVITY: Activity Restrictions: Slowly Increase Activity Do not operate Machinery Do not operate Power Tool Avoid Heavy Housework FOLLOW UP/APPOINTMENTS Appointments Transfer to [facility] for continued rehabilitative services ARSEN HUITRON MD July 15, 2016 17:38
--- NOTE | 2016-07-15 17:42 | DS ---
Date/Time of Note Date/Time of Note DATE: 07/15/16 TIME: 17:39 Discharge Summary Admission/Discharge Info Admit Date/Time July 10, 2016 at 11:42 Discharge Date/Time 07/15/2016 Final Diagnosis Acute bronchitis; Parkinson's disease with deep brain stimulator; diabetes mellitus type 2; chronic kidney disease stage III; hypertension; BPH; hyperlipidemia; malabsorption syndrome; abnormal weight loss; anemia; dysthymia Patient Condition: Fair Procedures Swallowing study; Hx of Present Illness This is the first recent [facility] admission for this 55- year-old right-handed, single male. He has a history of diabetes mellitus type 1 -- SPENCER with multiple complications. In addition to this, he has Parkinson disease and has recently had a second deep brain stimulator implanted. Postoperatively, he has had some failure to thrive with steadily worsening ability to care for himself. He has developed a cough and has a lesion on his ear. Because of this and because of not being able to care for himself, he is now brought into the hospital for treatment for possible bronchitis infection in the setting of multiple other medical problems. PAST MEDICAL HISTORY: 1. Diabetes mellitus type 1 -- SPENCER. 2. Parkinson disease. 3. Chronic kidney disease stage III. 4. Lumbar disk disease with failed low back syndrome. 5. Chronic pain syndrome. 6. Hypertension. 7. Hyperlipidemia. 8. Major depressive disorder. 9. History of obstructive sleep apnea. 10. Diabetic peripheral neuropathy. 11. Remote history of gastric ulcer. 12. Reflex sympathetic dystrophy, also known as complex regional pain syndrome. 13. Remote history of hepatitis A. 14. Status post subtotal gastrectomy with [place] construction. 15. Status post repair of fourth cranial nerve injury in 1993. 16. Status post T and A. 17. Status post eye surgery x3. 18. Status post lumbar laminectomy. 19. Status post L4-5 facet rhizotomy. 20. Status post radial keratotomy. 21. Status post left shoulder arthroscopy. 22. Status post deep brain stimulator. ALLERGIES: HE IS INTOLERANT OF TOPIRAMATE AND HAD SOME ISSUES WITH SINEMET, BUT HE IS TOLERATING THAT NOW. MEDICATIONS: 1. Sinemet 25/100 q.i.d. 2. Docusate p.r.n. 3. Gabapentin 600 q.i.d. 4. Lisinopril 20 mg a day. 5. Metformin 500 b.i.d. 6. Methadone 20 mg once a day. 7. Tizanidine 4 mg at bedtime. Hospital Course Ludin 55-year-old single male who is admitted with a failure to thrive bronchitis shortness of breath. There is concern of his having aspiration however his swallowing studies turned out to be acceptable. He is slowly improved. Please note the his deterioration was immediately after placement of deep brain stimulator. He is now ambulating 100 feet with careful assist. He will need several weeks of rehabilitation therapy but actually I believe his rehabilitation potential is good. He has no known communicable diseases he is not hazard to himself or others and he is competent for medical decision-making Follow-up Plan To Elenirosaline B[facility] please see med reconciliation Pending Labs Laboratory Tests Test 07/14/16 20:03 07/14/16 21:56 07/15/16 02:28 07/15/16 08:10 Bedside Glucose 273mg/dL (70-220) 158mg/dL (70-220) 196mg/dL (70-220) 123mg/dL (70-220) Test 07/15/16 10:56 07/15/16 11:51 07/15/16 14:34 07/15/16 17:21 Bedside Glucose 177mg/dL (70-220) 160mg/dL (70-220) 115mg/dL (70-220) 106mg/dL (70-220) ARSEN HUITRON MD July 15, 2016 17:42
== END 2016-07-15 18:55 | DRG 202 ==
LOC: L-D 11:42 → MS2 11:52
PROVIDERS: ADMIT Internal Medicine; ATTEND Internal Medicine
PROC: BD1BYZZ Fluoroscopy of Mouth/Oropharynx using Other Contrast (ICD-10-PCS; principal; 2016-07-12)
DX: J20.9 Acute bronchitis, unspecified (principal); G90.50 Complex regional pain syndrome I, unspecified; E11.42 Type 2 diabetes mellitus with diabetic polyneuropathy; E11.22 Type 2 diabetes mellitus with diabetic chronic kidney disease; K90.9 Intestinal malabsorption, unspecified; R62.7 Adult failure to thrive; I12.9 Hypertensive chronic kidney disease with stage 1 through stage 4 chronic kidney disease, or unspecified chronic kidney disease; G20 Parkinson's disease; N18.3 Chronic kidney disease, stage 3 (moderate); E78.5 Hyperlipidemia, unspecified; N40.1 Benign prostatic hyperplasia with lower urinary tract symptoms; R33.8 Other retention of urine; D64.9 Anemia, unspecified; F34.1 Dysthymic disorder; F32.9 Major depressive disorder, single episode, unspecified; G89.4 Chronic pain syndrome; M51.9 Unspecified thoracic, thoracolumbar and lumbosacral intervertebral disc disorder; R13.19 Other dysphagia; M51.27 Other intervertebral disc displacement, lumbosacral region; G47.33 Obstructive sleep apnea (adult) (pediatric); Z90.3 Acquired absence of stomach [part of]; Z79.4 Long term (current) use of insulin
CPT/HCPCS: 36600; 74230; 80053; 81003; 82803; 82962; 83036; 84436; 84443; 84479; 85025; 85651; 92526; 92610; 92611; 97162; J1644; J1815; J3420; J7030; J7040